=== PATIENT | male | born 1965 | race Caucasian/White ===

== ENCOUNTER 2018-01-08 05:41 | Day surgery (SDC) | payer OTHER ==
[~2018-01-08] VITALS: Ht 180.3 cm; Wt 106.4 kg
[~2018-01-08 05:41] MED LIST: AMIO200T44 PO; APIX5TAB PO; EPLE50TA9 PO; EVOL140P SQ; FURO20 PO; HYDR-2924 PO; NIFE60TA81 PO; SODIUM CHLORIDE 0.9% 1,000 ML IV ONE
[2018-01-08] MEDS ORDERED: PROPOFOL 1% 20 ML VIAL IVP ONE (05:42)
[2018-01-08] MEDS ORDERED: SODIUM CHLORIDE 0.9% 1,000 ML IV ONE (05:59)
[2018-01-08 06:59] LABS: PROTHROMBIN TIME 10.2 SEC (9.4-11.6)
[2018-01-08 07:51] VITALS: BP 144/92
[2018-01-08] MEDS ORDERED: BENZOCAINE 20% 50 MCG/SPRAY 57 GM ONE (08:11)
[2018-01-08] MEDS ORDERED: BENZOCAINE 20% 50 MCG/SPRAY 57 GM TP ONE (08:30)
[2018-01-08 08:39] VITALS: BP 103/75
== END 2018-01-08 10:40 | disposition home or self-care (01) ==
LOC: CATHLAB 05:41
PROVIDERS: ATTEND Internal Medicine Cardiovascular Disease
DX: I48.2 Chronic atrial fibrillation (principal); I10 Essential (primary) hypertension; E78.00 Pure hypercholesterolemia, unspecified; Z79.01 Long term (current) use of anticoagulants; Z86.79 Personal history of other diseases of the circulatory system; Z86.73 Personal history of transient ischemic attack (TIA), and cerebral infarction without residual deficits; Z72.89 Other problems related to lifestyle; Z79.899 Other long term (current) drug therapy; Z98.890 Other specified postprocedural states
CPT/HCPCS: 36415; 85610; 85730; 92960; 93005; 93312; J2704; J7030